=== PATIENT | female | born 1975 | race Caucasian/White ===

== ENCOUNTER 2021-04-24 10:58 | Emergency (ER) | payer MEDICAID ==
[~2021-04-24] VITALS: Ht 154.9 cm; Wt 54.4 kg
[2021-04-24 11:07] VITALS: BP_SYST 177
--- NOTE | 2021-04-24 11:13 | NUR ---
Patient to ER bed 7 to gown for evaluation. Side rails up. Report given to Tessy DAS.
--- NOTE | 2021-04-24 11:22 | NUR ---
PT COMES INTO ER WITH C/O INCREASED VAGINAL BLEEDING X 1 MONTH, INTERMITTENT AND VARIES IN SEVERITY, CURRENTLY LESS THAN 1 WEEK AGO. STATES USING 3 SANITARY PADS/DAY. G-5,P5, ALL NORMAL VAGINAL DELIVERIES. REPORTS BEING INJECTED WITH SOME MEDICATION TO CONTROL BLEEDING BUT UNAWARE OF MEDICATION, SOMETIME IN FEBRUARY IN [place]. PT REPORTS OCCASIONAL HEADACHE, DENIES DIZZINESS. SKIN W/D/I, MM-MOIST. PT REPORTS MED HX OF HTN AND DM, CURRENTLY ON LOSARTAN AND METFORMIN. BP 193/101, HR-78. ER MD INFORMED. PT DENIES ANY CHANGES IN VISION, JUST FEELING TIRED AT END OF DAY REQURING GLASSES TO READ. RESP EVEN AND UNLABORED, ON RA @99%. DENIES ANY CP OR SOB. WAIITNG FOR ER MD ARROYO.
--- NOTE | 2021-04-24 11:48 | NUR ---
IN ROOM WITH DR SHIELDS, ASSISTED WITH TRANSLATION. PT DENIES ANY ABD PAIN, N.V,D OR EFEVRS. NO ACTIVE BLEEDING NOTED AT THSI TIME.
[2021-04-24 12:16] LABS: BASOPHILS # (AUTO) 0.1 K/uL (0.0-0.2); EOSINOPHILS # (AUTO) 0.2 K/uL (0.0-0.4); EOSINOPHILS % (AUTO) 2.9 % (0.0-4.0); HEMATOCRIT 35.5 % (36-48); HEMOGLOBIN 11.8 g/dL (12.0-16.0); LYMPHOCYTES # (AUTO) 2.8 K/uL (1.0-5.5); LYMPHOCYTES % (AUTO) 37.5 % (20.5-51.5); MEAN CORPUSCULAR HEMOGLOBIN 29 pg (27-31); MEAN CORPUSCULAR HGB CONC 33 % (32-36); MEAN CORPUSCULAR VOLUME 87 fL (79.0-98.0); MONOCYTES # (AUTO) 0.3 K/uL (0.0-1.0); MONOCYTES % (AUTO) 4.2 % (1.7-9.3); NEUTROPHILS # (AUTO) 4.1 K/uL (1.8-7.7); NEUTROPHILS % (AUTO) 54.4 % (40.0-70.0); PLATELET COUNT (AUTO) 183 K/uL (130-430); RED BLOOD CELL COUNT(AUTO) 4.08 MIL/uL (4.2-6.2); RED CELL DISTRIBUTION WIDTH 14.9 % (9.0-15.0); WHITE BLOOD COUNT (AUTO) 7.6 K/uL (4.8-10.8)
[2021-04-24 12:20] LABS: INR 0.9 (0.8-1.2); PROTHROMBIN TIME 9.3 SECS (9.5-12.5)
--- NOTE | 2021-04-24 13:08 | NUR ---
ASSISTED UP TO BATHROOM FOR URINE COLECTION. PT DENIES AY DIZZINESS.
--- NOTE | 2021-04-24 14:29 | NUR ---
PT TAKEN TO US AMB
[2021-04-24] MEDS ORDERED: MEDR10TA3 PO (15:27)
[2021-04-24 15:36] VITALS: BP_SYST 152
--- NOTE | 2021-04-24 15:36 | NUR ---
Patient given written and verbal discharge instructions and verbalizes understanding. ER MD discussed with patient the results and treatment provided. Patient in stable condition. ID arm band removed. Rx of PROVERA given. Patient educated on pain management and to follow up with PMD. Pain Scale 0/10. Opportunity for questions provided and answered. Medication side effect fact sheet provided.
== END 2021-04-24 15:36 | disposition home or self-care (01) ==
LOC: SED 10:58
DX: N93.8 Other specified abnormal uterine and vaginal bleeding (principal); I10 Essential (primary) hypertension; Z79.899 Other long term (current) drug therapy
CPT/HCPCS: 36415; 76830-TC; 76857; 81025; 84702; 85025; 85610-TC; 86886; 86900; 86901; 99284